=== PATIENT | male | born 1970 | race Caucasian/White ===

== ENCOUNTER 2016-08-04 09:47 | Emergency (ER) | payer OTHER ==
[~2016-08-04] VITALS: Ht 185.4 cm; Wt 87.2 kg
[~2016-08-04 09:47] MED LIST: [UNRECOGNIZED DRUG - OTHER]
[2016-08-04 09:51] VITALS: TEMP 37; Ht 185.4 cm; Wt 87.2 kg
[2016-08-04 10:01] VITALS: O2SAT 97
[2016-08-04] MEDS ORDERED: SODIUM CHLORIDE 0.9% 1000ML 1,000 ML IV STA (10:02)
[2016-08-04] MEDS ORDERED: ONDANSETRON INJ 2 MG/ML 2 ML VIAL IV STA (10:02)
[2016-08-04] MEDS ORDERED: ALUMINUM/MAGNESIUM SUSP 30 ML UDC PO STA (10:02)
--- NOTE | 2016-08-04 10:11 | EMERGENCY ROOM VISIT NOTE ---
History Report prepared by [place]: Pieter Alatorre Under the Supervision of: Meng BarrosO. First contact with patient: 09:53 Chief Complaint: CARDIAC ASSESSMENT Stated Complaint: CHEST DISCOMFORT History of Present Illness The patient is a 46 year old male who presents to the Emergency Room with complaints of intermittent right sided chest pain radiating to the middle of the chest starting last night. He denies any pain radiation to the back. He had just finished eating when he had the onset of his pain. He has worsening pain with movement and lying down flat. He denies any worsening pain with eating. He currently denies any pain. He had a vomiting episode last night. He denies shortness of breath, abdominal pain, lower extremity pain/swelling, or any other complaints. He has a history of perforated esophagus. He does not have any medical problems. He takes 81 mg Aspirin for a family history of heart disease. Source of History: patient Onset: last night Position: chest (right) Symptom Intensity: No pain currently Modifying Factors (Worsening): movement, other (lying down flat) Associated Symptoms: + vomiting, No SOB, No abdominal pain Review of Systems See HPI for pertinent positives & negatives. A total of 10 systems reviewed and were otherwise negative. Past Medical & Surgical Medical Problems: (1) Chest pain (2) Esophageal perforation (3) Hypoxia (4) Intellectual disability Family History Cancer Heart disease Hypertension Social History Smoking Status: Never Smoker Alcohol Use: none Drug Use: none Housing Status: lives with family Occupation Status: employed Current/Historical Medications Scheduled Aspirin (Aspirin Ec), 81 MG PO DAILY Levofloxacin (Levaquin), 750 MG PO DAILY Multivitamin (Multivitamin), 1 TAB PO DAILY Omeprazole (Prilosec), 20 MG PO DAILY Ranitidine Hcl (Zantac), 150 MG PO BID Allergies Coded Allergies: No Known Allergies (Unverified , 08/04/16) Physical Exam Vital Signs Date Time Temp Pulse Resp B/P Pulse Ox O2 Delivery O2 Flow Rate FiO2 08/04/16 14:19 69 19 105/68 96 Room Air 08/04/16 13:31 67 08/04/16 12:20 64 16 109/65 98 Room Air 08/04/16 10:55 71 18 121/65 97 Room Air 08/04/16 10:08 83 20 136/77 97 08/04/16 10:02 80 08/04/16 10:01 97 Room Air 08/04/16 10:01 97 Room Air 08/04/16 09:51 37.0 86 18 122/69 98 Room Air Physical Exam GENERAL: Patient is awake, alert, and in no acute distress. Patient is resting comfortably and showing no signs of anxiety EYES: The conjunctivae are clear. The pupils are round and reactive. EARS, NOSE, MOUTH AND THROAT: The nose is without any evidence of any deformity. Mucous membranes are moist tongue is midline NECK: The neck is nontender and supple. RESPIRATORY: Normal respiratory effort is noted there is no evidence of wheezing rhonchi or rales CARDIOVASCULAR: Regular rate and rhythm noted there no murmurs rubs or gallops normal S1 normal S2 GASTROINTESTINAL: The abdomen is soft. Bowel sounds are present in all quadrants. Abdomen is nontender MUSCULOSKELETAL/EXTREMITIES: There is no evidence of gross deformity full range of motion is noted in the hips and shoulders SKIN: There is no obvious evidence of any rash. There are no petechiae, pallor or cyanosis noted. NEUROLOGIC: Patient is awake alert and oriented x3 Medical Decision & Procedures ER Provider Diagnostic Interpretation: X-ray results as stated below per interpretation by me and the radiologist. ABDOMEN 2VIEW W/PA CHEST RTN CLINICAL HISTORY: ABDOMINAL PAIN/GI pain. Nausea. COMPARISON STUDY: 09/24/2014 FINDINGS: Persistent parenchymal infiltrative change medial left base is improved from the prior exam. Lungs otherwise appear clear. Diaphragms smooth. Bowel pattern is nonobstructive. There is a moderate amount of fecal load throughout the colon. There is no significant small bowel distention. IMPRESSION: Mild improvement of a left basilar parenchymal density. Nonobstructive bowel pattern. No acute process currently. Electronically signed by: Tanvir Sigala M.D. 08/04/2016 12:01 PM Dictated Date/Time: 08/04/2016 12:[address] results as stated below per my review and radiologist interpretation. Study: CT angiography of the chest HISTORY: Chest pain FINDINGS: Slight ectasia of the a sending thoracic aorta with maximum diameter of 3.3 cm. No evidence for aneurysm or dissection. Hiatal hernias present. There is mild distal esophageal wall thickening. Evaluation of lung parenchyma demonstrates bibasilar interstitial prominence. Mild left basal pleural thickening is present. A low-grade pneumonitis is not excluded. Limited evaluation the upper abdomen is unremarkable. IMPRESSION: 1. Negative study of the thoracic aorta. 2. Mild bibasilar interstitial prominence possibly on the basis of atelectatic change versus mild basilar pneumonitis. 3. Otherwise negative study Electronically signed by: Tanvir Sigala M.D. 08/04/2016 12:58 PM Dictated Date/Time: 08/04/2016 12:54 PM Laboratory Results 08/04/16 10:12 Red Blood Count 4.80, Mean Corpuscular Volume 87.7, Mean Corpuscular Hemoglobin 31.7, Mean Corpuscular Hemoglobin Concent 36.1, Mean Platelet Volume 9.2, Neutrophils (%) (Auto) 82.9, Lymphocytes (%) (Auto) 9.8, Monocytes (%) (Auto) 6.9, Eosinophils (%) (Auto) 0.1, Basophils (%) (Auto) 0.1, Neutrophils # (Auto) 14.00, Lymphocytes # (Auto) 1.65, Monocytes # (Auto) 1.16, Eosinophils # (Auto) 0.02, Basophils # (Auto) 0.01 08/04/16 10:12 Test 08/04/16 10:12 08/04/16 11:05 White Blood Count 16.88 K/uL (4.8-10.8) Red Blood Count 4.80 M/uL (4.7-6.1) Hemoglobin 15.2 g/dL (14.0-18.0) Hematocrit 42.1 % (42-52) Mean Corpuscular Volume 87.7 fL (80-100) Mean Corpuscular Hemoglobin 31.7 pg (25-34) Mean Corpuscular Hemoglobin Concent 36.1 g/dl (32-36) Platelet Count 204 K/uL (130-400) Mean Platelet Volume 9.2 fL (7.4-10.4) Neutrophils (%) (Auto) 82.9 % Lymphocytes (%) (Auto) 9.8 % Monocytes (%) (Auto) 6.9 % Eosinophils (%) (Auto) 0.1 % Basophils (%) (Auto) 0.1 % Neutrophils # (Auto) 14.00 K/uL (1.4-6.5) Lymphocytes # (Auto) 1.65 K/uL (1.2-3.4) Monocytes # (Auto) 1.16 K/uL (0.11-0.59) Eosinophils # (Auto) 0.02 K/uL (0-0.5) Basophils # (Auto) 0.01 K/uL (0-0.2) RDW Standard Deviation 38.5 fL (36.4-46.3) RDW Coefficient of Variation 12.1 % (11.5-14.5) Immature Granulocyte % (Auto) 0.2 % Immature Granulocyte # (Auto) 0.04 K/uL (0.00-0.02) Prothrombin Time 11.1 SECONDS (9.0-12.0) Prothromb Time International Ratio 1.0 (0.9-1.1) Activated Partial Thromboplast Time 28.9 SECONDS (21.0-31.0) Partial Thromboplastin Ratio 1.1 Anion Gap 10.0 mmol/L (3-11) Est Creatinine Clear Calc Drug Dose 105.4 ml/min Estimated GFR () 104.9 Estimated GFR (Non- 90.5 BUN/Creatinine Ratio 17.2 (10-20) Calcium Level 9.3 mg/dl (8.5-10.1) Total Bilirubin 1.8 mg/dl (0.2-1) Direct Bilirubin 0.3 mg/dl (0-0.2) Aspartate Amino Transf (AST/SGOT) 17 U/L (15-37) Alanine Aminotransferase (ALT/SGPT) 27 U/L (12-78) Alkaline Phosphatase 56 U/L (45-117) Total Creatine Kinase 73 U/L (39-308) Creatine Kinase MB 2.2 ng/ml (0.5-3.6) Creatine Kinase MB Ratio 3.0 (0-3.0) Troponin I < 0.015 ng/ml (0-0.045) Total Protein 6.9 gm/dl (6.4-8.2) Albumin 4.0 gm/dl (3.4-5.0) Lipase 120 U/L (73-393) Urine Color YELLOW Urine Appearance CLEAR (CLEAR) Urine pH 6.5 (4.5-7.5) Urine Specific [place] 1.010 (1.000-1.030) Urine Protein NEG (NEG) Urine Glucose (UA) NEG (NEG) Urine Ketones NEG (NEG) Urine Occult Blood NEG (NEG) Urine Nitrite NEG (NEG) Urine Bilirubin NEG (NEG) Urine Urobilinogen NEG (NEG) Urine Leukocyte Esterase NEG (NEG) Laboratory results per my review. Medications Administered Medications (Trade) Dose Ordered Sig/Marilia Route Start Time Stop Time Status Last Admin Dose Admin Al Hydroxide/Mg Hydroxide 30 ml 30 ml NOW STAT PO 08/04/16 10:02 08/04/16 10:03 DC 08/04/16 10:21 30 ML Sodium Chloride (Nss 1000ml) 1,000 ml @ 999 mls/hr Q1H1M STAT IV 08/04/16 10:02 08/04/16 11:02 DC 08/04/16 10:22 999 MLS/HR Ondansetron HCl 4 mg 4 mg NOW STAT IV 08/04/16 10:02 08/04/16 10:03 DC 08/04/16 10:21 4 MG Pantoprazole Sodium/Syringe (Protonix Inj/ Syringe) 10 ml @ 5 mls/min NOW ONCE IV 08/04/16 10:15 08/04/16 10:16 DC 08/04/16 10:22 5 MLS/MIN Levofloxacin (Levaquin Tab) 750 mg NOW STAT PO 08/04/16 13:51 08/04/16 13:52 DC 08/04/16 14:16 750 MG ECG Indication: chest pain Rate (beats per minute): 77 Rhythm: normal sinus Findings: Q waves (Inferior), other (No acute ST segment abnormalities) Comparison ECG Date: November 08, 2010 Change: no significant change ED Course 0953: The patient was evaluated in room C04. A complete history and physical examination were performed. 1002: Zofran Inj 4 mg IV, Sodium Chloride 1000 ml @ 999 mls/hr IV, Maalox Susp 30 ml PO 1015: Pantoprazole Sodium 40 mg/Syringe 10 ml @ 5 mls/min IV 1308: I discussed the patient's case with Dr. Patton, [facility]. 1340: Upon reevaluation, the patient is resting comfortably. I discussed the results and treatment plan with the patient and his family. They verbalized agreement of the treatment plan. The patient was discharged home. 1351: Levofloxacin 750 mg PO Medical Decision Prior records/ancillary studies reviewed. Triage Nursing notes reviewed. The patient's history was concerning for chest pain. Differential diagnosis: Etiologies such as cardiac ischemia, aortic dissection, pulmonary embolism, pneumonia, pneumothorax, musculoskeletal, infections, pericarditis, myocarditis , esophageal rupture, gastrointestinal, as well as others were entertained. The patient is a 46-year-old male who presented to the emergency department for an evaluation of right-sided chest pain. The patient's EKG did not appear to show any changes from his previous EKG. The patient has had ongoing pain in his cardiac biomarkers are negative. The patient doesn't a history of esophageal rupture in the past. He had surgery on this area. I was concerned that his presentation could be consistent with more of a GI type of pain. For this reason radiographic studies were obtained to ensure that he did not have another perforation. He was shown to have some signs of pneumonia on chest CT. He had no free air or other signs of perforation. He did have an elevated white blood cell count but he did not cough or fever. I discussed his case with his primary delivery representative. At this time I recommended that he follow-up with his delivery representative as soon as possible for further evaluation. He was started on antibiotic. He was encouraged also continue taking proton pump inhibitor that was prescribed. I also recommended that he rest and avoid any strenuous activity and return to the emergency department immediately if symptoms change worsen or the need arises. Consults Time Called: 1305 Consulting Physician: Dr. Patton, delivery representative with [facility] Returned Call: 1302 I discussed the patient's case with Dr. Patton, delivery representative with [facility]. Impression Primary Impression: Right-sided chest pain Additional Impression: Pneumonia Scribe Attestation The scribe's documentation has been prepared under my direction and personally reviewed by me in its entirety. I confirm that the note above accurately reflects all work, treatment, procedures, and medical decision making performed by me. Departure Information Dispostion Home / Self-Care Prescriptions Levofloxacin (Levaquin) 750 Mg Tab 750 MG PO DAILY, #7 TAB Prov: Tito Nagel, DO 08/04/16 Ranitidine Hcl (ZANTAC) 150 Mg Tab 150 MG PO BID, #60 TAB Prov: Tito Nagel, DO 08/04/16 Omeprazole (Prilosec) 20 Mg Capcr 20 MG PO DAILY, #30 CAP Prov: Tito Nagel, DO 08/04/16 Referrals Ahmet Zuniga M.D. (PCP) Tan Patton D.O. Forms IMPORTANT VISIT INFORMATION Patient Instructions ED Chest Pain Atypical Unkn Cause, My [facility], Pneumonia Additional Instructions Continue using Tylenol as directed for pain. Drink plenty clear liquids. Follow- up with your family doctor for further evaluation. Call your primary delivery representative to schedule a follow-up appointment as soon as possible. Return to the emergency department immediately if symptoms change worsen or the need arises. Avoid any strenuous activity. Problem Qualifiers Additional Impression: Pneumonia Pneumonia type: due to unspecified organism Laterality: unspecified laterality Lung location: lower lobe of lung Qualified Codes: J18.1 - Lobar pneumonia, unspecified organism
[2016-08-04] MEDS ORDERED: PANTOprazole INJ 40 MG in SYRINGE 0 ML IV ONE (10:15)
[2016-08-04 10:31] LABS: BASO % 0.1 %; BASO ABS # 0.01 K/uL (0-0.2); COMPLETE YES; EOS % 0.1 %; HEMATOCRIT 42.1 % (42-52); IG% 0.2 %; LYMPH % 9.8 %; LYMPH ABS # 1.65 K/uL (1.2-3.4); MEAN CELL VOLUME 87.7 fL (80-100); MEAN CORPUSCULAR HEMOGLOBIN 31.7 pg (25-34); MEAN CORPUSCULAR HGB CONC 36.1 g/dl (32-36); MEAN PLATELET VOLUME 9.2 fL (7.4-10.4); MONO % 6.9 %; NEUT % 82.9 %; PLATELET COUNT 204 K/uL (130-400); WHITE BLOOD COUNT 16.88 K/uL (4.8-10.8)
[2016-08-04 10:39] LABS: PARTIAL THROMBOPLASTIN RATIO 1.1; PROTHROMBIN TIME (PATIENT) 11.1 SECONDS (9.0-12.0)
[2016-08-04 10:47] LABS: ALT/SGPT 27 U/L (12-78); BLOOD UREA NITROGEN 17 mg/dl (7-18); BUN/CREATININE RATIO 17.2 (10-20); CALCIUM 9.3 mg/dl (8.5-10.1); CARBON DIOXIDE 27 mmol/L (21-32); CHLORIDE 100 mmol/L (98-107); GLUCOSE 107 mg/dl (70-99); POTASSIUM 4.1 mmol/L (3.5-5.1); SODIUM 137 mmol/L (136-145)
[2016-08-04 10:52] LABS: ALKALINE PHOSPHATASE 56 U/L (45-117); AST/SGOT 17 U/L (15-37)
[2016-08-04] MEDS ORDERED: ASPI81TA28 PO (11:13)
[2016-08-04] MEDS ORDERED: MULT-506 PO (11:13)
[2016-08-04 11:20] LABS: URINE APPEARANCE CLEAR (CLEAR); URINE BILIRUBIN NEG (NEG); URINE COLOR YELLOW; URINE NITRITE NEG (NEG); URINE PH 6.5 (4.5-7.5); UROBILINOGEN NEG (NEG)
[2016-08-04 11:29] LABS: MANUAL MICROSCOPIC REQUIRED? NO; REVIEW REQ? NO
--- NOTE | 2016-08-04 12:02 | DIAGNOSTIC IMAGING REPORT ---
ABDOMEN 2VIEW W/PA CHEST RTN CLINICAL HISTORY: ABDOMINAL PAIN/GI pain. Nausea. COMPARISON STUDY: 09/24/2014 FINDINGS: Persistent parenchymal infiltrative change medial left base is improved from the prior exam. Lungs otherwise appear clear. Diaphragms smooth. Bowel pattern is nonobstructive. There is a moderate amount of fecal load throughout the colon. There is no significant small bowel distention. IMPRESSION: Mild improvement of a left basilar parenchymal density. Nonobstructive bowel pattern. No acute process currently. Electronically signed by: Tanvir Sigala M.D. 08/04/2016 12:01 PM Dictated Date/Time: 08/04/2016 12:00 PM
[2016-08-04] MEDS ORDERED: OPTIRAY 320 IV PRN (12:30)
--- NOTE | 2016-08-04 12:59 | DIAGNOSTIC IMAGING REPORT ---
Study: CT angiography of the chest HISTORY: Chest pain FINDINGS: Slight ectasia of the a sending thoracic aorta with maximum diameter of 3.3 cm. No evidence for aneurysm or dissection. Hiatal hernias present. There is mild distal esophageal wall thickening. Evaluation of lung parenchyma demonstrates bibasilar interstitial prominence. Mild left basal pleural thickening is present. A low-grade pneumonitis is not excluded. Limited evaluation the upper abdomen is unremarkable. IMPRESSION: 1. Negative study of the thoracic aorta. 2. Mild bibasilar interstitial prominence possibly on the basis of atelectatic change versus mild basilar pneumonitis. 3. Otherwise negative study Electronically signed by: Tanvir Sigala M.D. 08/04/2016 12:58 PM Dictated Date/Time: 08/04/2016 12:54 PM
[2016-08-04] MEDS ORDERED: LEVOFLOXACIN 250 MG TAB PO STA (13:51)
[2016-08-04] MEDS ORDERED: LEVO1TAB35 PO (13:53)
[2016-08-04] MEDS ORDERED: OMEP20CA59 PO (13:53)
[2016-08-04] MEDS ORDERED: RANI150T3 PO (13:53)
[2016-08-04 14:19] VITALS: BP 105/68; PULSE 69; O2SAT 96
== END 2016-08-04 14:24 | disposition home or self-care (01) ==
LOC: C.EDB 09:48 → C.EDC 14:24
DX: J18.1 Lobar pneumonia, unspecified organism (principal); Z79.82 Long term (current) use of aspirin; F79 Unspecified intellectual disabilities; Z79.899 Other long term (current) drug therapy

== ENCOUNTER 2020-07-18 21:00 | Inpatient (IN) ==
[2020-07-18] MEDS ORDERED: SODIUM CHLORIDE 0.9% 1000ML 2,000 ML IV ONE (21:09)
[2020-07-18] MEDS ORDERED: diphenhydrAMINE 50 MG/ML VIAL IV STA (21:09)
[2020-07-18] MEDS ORDERED: FAMOTIDINE 20MG IV PUSH 20 MG/5 ML SYR IV STA (21:09)
[2020-07-18] MEDS ORDERED: ONDANSETRON INJ 2 MG/ML 2 ML VIAL IV STA (21:10)
[2020-07-18 21:21] LABS: Basophils # (auto) 0.03 K/uL (0-0.2); Basophils % (auto) 0.2 %; Eosinophils # (auto) 0.26 K/uL (0-0.5); Eosinophils % (auto) 1.5 %; Immature Granulocytes # (auto) 0.05 K/uL (0.00-0.02); Immature Granulocytes % (auto) 0.3 %; Lymphocytes # (auto) 2.43 K/uL (1.2-3.4); Lymphocytes % (auto) 14.2 %; Mean Corpuscular Hemoglobin 32.5 pg (25-34); Mean Corpuscular Hgb Conc 36.4 g/dL (32-36); Mean Corpuscular Volume 89.2 fL (80-100); Mean Platelet Volume 9.3 fL (7.4-10.4); Monocytes # (auto) 0.57 K/uL (0.11-0.59); Monocytes % (auto) 3.3 %; Neutrophils # (auto) 13.81 K/uL (1.4-6.5); Neutrophils % (auto) 80.5 %; Platelet Count 273 K/uL (130-400); RDW Coefficient of Variation 12.3 % (11.5-14.5); RDW Standard Deviation 39.6 fL (36.4-46.3); Red Blood Count 4.93 M/uL (4.7-6.1); White Blood Count 17.15 K/uL (4.8-10.8)
[2020-07-18] MEDS ORDERED: OPTIRAY 320 125ml IV ONE (21:30)
[2020-07-18 21:31] LABS: iSTAT Creatinine 1.4 mg/dl (0.6-1.3); iSTAT Hemoglobin 15.3 g/dl (14.0-18.0); iSTAT Ionized Calcium 1.15 mmol/l (1.12-1.32)
[2020-07-18 21:31] LABS: Prothrombin Time 10.3 Seconds (9.0-12.0)
--- NOTE | 2020-07-18 21:31 | Emergency Department Note ---
Impression & Plan Hematemesis of unknown etiology, Esophagitis, Acute hypotension, Acute renal insufficiency ED Provider Note NAME: JANE BABIN AGE: 49 SEX: M ARRIVES VIA: Walk-In INFORMANT: Patient, parents ED PROVIDER(S): Giovani Booker MD CHIEF COMPLAINT: Vomiting blood. PLAN: Disposition: Admit MEDICAL DECISION MAKING: The patient is a pleasant 49-year-old gentleman with a past medical history of intellectual disability, history of esophageal perforation in 2015 repaired at [facility] who presents to the emergency department accompanied by his parents after they were eating dinner and he began to feel nauseated and vomited numerous times eventually having blood in his vomit as well with increasing abdominal pain where he was feeling lightheaded and so presented to the emergency department. In triage the patient became pale, diaphoretic and syncopized with blood pressure in the 60s/40s. Upon arrival to the resuscitation bay and ini tiating IV fluids he was improving in his mentation and blood pressure. He denies any recent illness including denies recent fevers, chills, cough congestion, nausea vomiting, diarrhea, bloody/black stool. He does report that his nausea began first in his chest and abdominal pain only occurred after vomiting. On arrival the patient is ill and pale appearing, hypotensive 60s/40s which was fluid responsive and became normotensive and otherwise vital signs were stable and patient is afebrile. The patient appears clinically dry. He has mild upper abdominal tenderness without guarding or rebound. Given the patient's history of perforation an i-STAT was performed and patient was emergently sent for CTA of his chest and abdomen. These were unremarkable for acute process and otherwise demonstrates evidence of esophagitis which has previously been diagnosed. EKG without overt acute ischemia. Chest x-ray negative for acute cardiopulmonary process per my preliminary review. WBC 17K likely related to the patient's forceful vomiting. H/H and platelets within normal limits. Chemistry without metabolic acidosis. Creatinine 1.42, slightly increased from several days ago and consistent with patient's clinically dry appearance. Phosphorus 2.1 and electrolytes otherwise unremarkable. Troponin was negative/undetectable. LFTs unremarkable. CPK within normal limits. Upon reevaluation patient was feeling improved after IV fluid hydration, Pepcid, Zofran. He subsequently did have a transient episode of dry heaving that resolved with Compazine. He was then given additional GI cocktail with additional improvement. I did speak at length with the patient and his parents at the bedside. They do feel that there was "a lot of blood" with his vomit. Given his history they're worried if they are to take him home and this were to recur. Thus, reasonable to admit the patient for further management/observation and possible GI consultation and endoscopy if indicated. At this time the patient denies any pain or nausea. Dr. Guzmán, [facility] hospitalist, to will evaluate the patient for admission. Triage Nursing notes reviewed and agree them. Prior medical records reviewed Vital Signs: reviewed and remarkable for hypotension. Differential diagnosis: Vasovagal event, dehydration, infection, hypoglycemia, electrolyte abnormalities, cardiac sources, intracerebral event, pulmonary embolism, seizur e, toxicologic, neurologic, as well as other pathologies. ER treatment provided: See below. Diagnostics interpreted by me: ECG: Normal sinus rhythm, 69 bpm, no ectopy, nonspecific T wave abnormality, no overt ST ovation or depression, QTC 422, QRS 96. Cardiac Monitoring: An order for continuous cardiac monitoring was placed and demonstrated normal sinus rhythm, 69 bpm, no ectopy. Laboratory studies: See below Imaging studies: CXR: No acute cardiopulmonary process per my preliminary review. Preliminary Findings Only See Final Report For Complete Findings CTA CHEST: No thoracic aortic aneurysm or dissection. Mild atelectasis of the lung bases. Calcified granuloma left upper lobe. Partially calcified subcarinal and bilateral hilar lymph nodes may represent sequela of prior granulomatous disease. Small hiatal hernia with suggestion of circumferential wall thickening of the mid to distal esophagus which could be attributed to esophagitis, with an underlying lesion not excluded. No pleural effusion or pneumothorax. Radiologist: Jessenia Cotto M.D. Study ready at 21:44 and initial results transmitted at 21:58 Preliminary Findings Only See Final Report For Complete Findings CTA ABDOMEN & PELVIS With Contrast: No abdominal aortic aneurysm or dissection. No acute findings within the abdomen or pelvis. Hepatic steatosis. Minimal hyperdensity within the neck of the gallbladder could represent tiny stones or sludge. No hydronephrosis or nephrolithiasis. Pancreas, adrenal glands, spleen and appendix are unremarkable Radiologist: Jessenia Cotto M.D. Study ready at 21:47 and initial results transmitted at 22:03 Consultation(s): Dr. Guzmán, [facility] hospitalist. HPI: The patient is a pleasant 49-year-old gentleman with a past medical history of intellectual disability, history of esophageal perforation in 2015 repaired at [facility] who presents to the emergency department accompanied by his parents after they were eating dinner and he began to feel nauseated and vomited numerous times eventually having blood in his vomit as well with increasing abdominal pain where he was feeling lightheaded and so presented to the emergency department. In triage the patient became pale, diaphoretic and syncopized with blood pressure in the 60s/40s. Upon arrival to the resuscitation bay and initiating IV fluids he was improving in his mentation and blood pressure. He denies any recent illness including denies recent fevers, chills, cough congestion, nausea vomiting, diarrhea, bloody/black stool. He does report that his nausea began first in his chest and abdominal pain only occurred after vomiting. ROS: See above HPI for pertinent positives & negatives. A total of 10 systems reviewed and were otherwise negative. PAST MEDICAL HISTORY:See Below PAST SURGICAL HISTORY:See Below FAMILY HISTORY:See Below SOCIAL HISTORY:See Below HOME MEDICATIONS:See Below ALLERGIES:See Below VITALS:See Below PHYSICAL EXAMINATION: GENERAL: Awake, alert, uncomfortable-appearing, in no distress HENT: Normocephalic, atraumatic. Oropharynx with dry mucous membranes and otherwise unremarkable. EYES: Normal conjunctiva. Sclera non-icteric. EOMI. No nystamgus. PEARRL. NECK: Supple. No nuchal rigidity. FROM. No JVD. RESPIRATORY: Clear to auscultation. CARDIAC: Regular rate, normal rhythm. Extremities warm and well perfused. Pulses equal. ABDOMEN: Soft, non-distended. Mild upper abdominal tenderness to palpation. No rebound or guarding. No masses. RECTAL: Deferred. MUSCULOSKELETAL: Chest examination reveals no tenderness. The back is symmetrical on inspection without obvious abnormality. There is no CVA tenderness to palpation. No joint edema. LOWER EXTREMITIES: Calves are equal size bilaterally and non-tender. No edema. No discoloration. NEURO: Normal sensorium. No sensory or motor deficits noted. SKIN: Mild pallor. No rash or jaundice noted. ED COURSE: Critical Care: I have personally spent greater than 35 minutes of critical care time in the direct management of this patient. This includes bedside care, interpretation of diagnostic studies, and testing, discussion with consultants, patient, and family members, and other required patient management activities. This 35 minutes is in excess of all separately billable procedures. Gioavni Booker MD Past Med/Surg History Medical History (Updated 07/19/20 @ 04:38 by Giovani Booker MD) Esophageal perforation Esophagitis Intellectual disability Surgical History (Updated 07/14/19 @ 16:41 by Zana Zuniga MD) History of hernia repair Umbilical hernia repair June 2005 Right inguinal hernia repair March 2014-Dr. Rodriguez History of thoracotomy Status post left thoracotomy for repair of esophageal perforation 09/03/2014 Family History (Updated 07/14/19 @ 16:01 by Brett Brooks) Brother Diabetes Heart disease Hypertension Father Heart disease Hypertension Mother Brain tumor Denies family history of Ovarian cancer Prostate cancer Clotting disorder Breast cancer Social History (Updated 07/14/19 @ 16:43 by Zana Zuniga MD) Smoking Status: Never smoker Second Hand Exposure: No; Do You Dip or Chew Tobacco: No; Hx Alcohol Use: Yes Alcohol type: beer Hx Substance Use: No Preferred Language: Persian Communication Ability: Effective Geothermal Technician Required: No Beliefs That Will Affect Care: None marital status: Single Current Living Situation: Parent and Family Current Living Situation Comment: Lives with parents current occupational status: employed current occupation: [employer] Other Information That Helps Us Care for You: No Feels Safe at Home: Yes Safety Concerns: Feels Safe At This Time Dental Care, Regularly: Yes Physical Activity Frequency: Daily Physical Activity Frequency Comment: Walks approximately 2 miles per day. Seatbelt Use: always Assistive Devices: None Allergies Allergies Allergy/AdvReac Type Severity Reaction Status Date / Time No Known Allergies Allergy Unverified 07/18/20 21:39 Home Meds Home Medications Medication Instructions Recorded Confirmed ascorbate calcium (vitamin C) 500 500 mg PO DAILY 07/14/19 07/18/20 mg tablet aspirin 81 mg tablet,delayed 81 mg PO DAILY 07/14/19 07/18/20 release multivitamin 1 cap PO DAILY 07/14/19 07/18/20 Results & Data (ED) Vital Signs Vital Signs - 24 hr 07/18/20 21:02 07/18/20 21:06 07/18/20 21:14 Temperature Temperature Source Pulse Rate 72 63 66 Respiratory Rate 18 21 20 Respiratory Effort / Characteristics Non-Labored Spontaneous Respiratory Depth Normal Blood Pressure 68/40 L 102/53 L 99/56 L Blood Pressure Mean 49 69 70 Pulse Oximetry 96 97 98 Oxygen Delivery Method Room Air Sepsis Recent Fever Within 48 Hours No Sepsis New/Unexplained Change in Mental Status No Sepsis Action Taken by Nursing No Action Required 07/18/20 21:15 07/18/20 21:20 07/18/20 21:43 Temperature 37.3 C Temperature Source Oral Pulse Rate 65 67 90 Respiratory Rate 20 18 24 Respiratory Effort / Characteristics Respiratory Depth Blood Pressure 101/58 L 105/56 L 128/64 Blood Pressure Mean 72 72 85 Pulse Oximetry 97 98 99 Oxygen Delivery Method Sepsis Recent Fever Within 48 Hours Sepsis New/Unexplained Change in Mental Status Sepsis Action Taken by Nursing 07/18/20 21:45 07/18/20 21:46 07/18/20 21:51 Temperature Temperature Source Pulse Rate 86 82 Respiratory Rate 24 20 Respiratory Effort / Characteristics Respiratory Depth Blood Pressure 123/64 107/72 Blood Pressure Mean 83 83 Pulse Oximetry 100 99 99 Oxygen Delivery Method Room Air Room Air Room Air Sepsis Recent Fever Within 48 Hours Sepsis New/Unexplained Change in Mental Status Sepsis Action Taken by Nursing 07/18/20 22:00 07/18/20 22:15 07/18/20 22:20 Temperature 37.1 C Temperature Source Oral Pulse Rate 80 75 Respiratory Rate 19 19 Respiratory Effort / Characteristics Respiratory Depth Blood Pressure 117/50 L 108/62 Blood Pressure Mean 72 77 Pulse Oximetry 99 98 Oxygen Delivery Method Room Air Room Air Sepsis Recent Fever Within 48 Hours Sepsis New/Unexplained Change in Mental Status Sepsis Action Taken by Nursing 07/18/20 22:33 Temperature Temperature Source Pulse Rate 77 Respiratory Rate 20 Respiratory Effort / Characteristics Respiratory Depth Blood Pressure 116/60 Blood Pressure Mean 78 Pulse Oximetry 98 Oxygen Delivery Method Sepsis Recent Fever Within 48 Hours Sepsis New/Unexplained Change in Mental Status Sepsis Action Taken by Nursing Laboratory Data Result diagrams: 07/18/20 21:13 07/18/20 21:13 Lab Results 07/18/20 07/18/20 07/18/20 Range/Units 21:13 21:13 21:13 WBC 17.15 H (4.8-10.8) K/uL RBC 4.93 (4.7-6.1) M/uL Hgb 16.0 (14.0-18.0) g/dL POC Hgb (14.0-18.0) g/dl Hct 44.0 (42-52) % POC Hct (42-52) % MCV 89.2 (80-100) fL MCH 32.5 (25-34) pg MCHC 36.4 H (32-36) g/dL RDW Std Deviation 39.6 (36.4-46.3) fL RDW Coeff of Agnes 12.3 (11.5-14.5) % Plt Count 273 (130-400) K/uL MPV 9.3 (7.4-10.4) fL Immature Gran % (Auto) 0.3 % Neut % (Auto) 80.5 % Lymph % (Auto) 14.2 % Dixon % (Auto) 3.3 % Eos % (Auto) 1.5 % Baso % (Auto) 0.2 % Neut # (Auto) 13.81 H (1.4-6.5) K/uL Lymph # (Auto) 2.43 (1.2-3.4) K/uL Dixon # (Auto) 0.57 (0.11-0.59) K/uL Eos # (Auto) 0.26 (0-0.5) K/uL Baso # (Auto) 0.03 (0-0.2) K/uL Immature Gran # (Auto) 0.05 H (0.00-0.02) K/uL PT 10.3 (9.0-12.0) Seconds INR 1.0 (0.9-1.1) POC Sodium (135-144) mmol/L Sodium (136-145) mmol/L POC Potassium (3.3-5.0) mmol/L Potassium (3.5-5.1) mmol/L POC Chloride (101-112) mmol/L Chloride (98-107) mmol/L Carbon Dioxide (21-32) mmol/L POC Total CO2 (24-31) mmol/L Anion Gap (3-11) POC Anion Gap (16-25) mmol/L POC BUN (7-18) mg/dl BUN (7-18) mg/dl Creatinine (0.6-1.4) mg/dl POC Creatinine (0.6-1.3) mg/dl Est Cr Clr Drug Dosing ml/min Est GFR ( Amer) Est GFR (Non-Af Amer) BUN/Creatinine Ratio (10-20) Glucose (70-99) mg/dl POC Glucose (other) (70-99) mg/dl Calcium (8.5-10.1) mg/dl POC Ioniz Calcium Ahsa (1.12-1.32) mmol/l Phosphorus (2.5-4.9) mg/dl Magnesium (1.8-2.4) mg/dl Total Bilirubin (0.2-1) mg/dl Direct Bilirubin (0-0.2) mg/dl AST (15-37) U/L ALT (12-78) U/L Alkaline Phosphatase (45-117) U/L Total Creatine Kinase (39-308) U/L Troponin I (0-0.045) ng/ml Total Protein (6.4-8.2) gm/dl Albumin (3.4-5.0) gm/dl Globulin (2.5-4.0) gm/dl Albumin/Globulin Ratio (0.9-2) Lipase (73-393) U/L Blood Type O Positive Antibody Screen NEGATIVE 07/18/20 07/18/20 Range/Units 21:13 21:17 WBC (4.8-10.8) K/uL RBC (4.7-6.1) M/uL Hgb (14.0-18.0) g/dL POC Hgb 15.3 (14.0-18.0) g/dl Hct (42-52) % POC Hct 45 (42-52) % MCV (80-100) fL MCH (25-34) pg MCHC (32-36) g/dL RDW Std Deviation (36.4-46.3) fL RDW Coeff of Agnes (11.5-14.5) % Plt Count (130-400) K/uL MPV (7.4-10.4) fL Immature Gran % (Auto) % Neut % (Auto) % Lymph % (Auto) % Dixon % (Auto) % Eos % (Auto) % Baso % (Auto) % Neut # (Auto) (1.4-6.5) K/uL Lymph # (Auto) (1.2-3.4) K/uL Dixon # (Auto) (0.11-0.59) K/uL Eos # (Auto) (0-0.5) K/uL Baso # (Auto) (0-0.2) K/uL Immature Gran # (Auto) (0.00-0.02) K/uL PT (9.0-12.0) Seconds INR (0.9-1.1) POC Sodium 139 (135-144) mmol/L Sodium 139 (136-145) mmol/L POC Potassium 4.0 (3.3-5.0) mmol/L Potassium 3.9 (3.5-5.1) mmol/L POC Chloride 99 L (101-112) mmol/L Chloride 104 (98-107) mmol/L Carbon Dioxide 28 (21-32) mmol/L POC Total CO2 28 (24-31) mmol/L Anion Gap 7.0 (3-11) POC Anion Gap 17.0 (16-25) mmol/L POC BUN 18 (7-18) mg/dl BUN 17 (7-18) mg/dl Creatinine 1.42 H (0.6-1.4) mg/dl POC Creatinine 1.4 H (0.6-1.3) mg/dl Est Cr Clr Drug Dosing 84.0 ml/min Est GFR ( Amer) 67.2 Est GFR (Non-Af Amer) 58.0 BUN/Creatinine Ratio 12.3 (10-20) Glucose 153 H (70-99) mg/dl POC Glucose (other) 156 H (70-99) mg/dl Calcium 8.7 (8.5-10.1) mg/dl POC Ioniz Calcium Asha 1.15 (1.12-1.32) mmol/l Phosphorus 2.1 L (2.5-4.9) mg/dl Magnesium 1.9 (1.8-2.4) mg/dl Total Bilirubin 0.4 (0.2-1) mg/dl Direct Bilirubin < 0.1 (0-0.2) mg/dl AST 19 (15-37) U/L ALT 38 (12-78) U/L Alkaline Phosphatase 57 (45-117) U/L Total Creatine Kinase 88 (39-308) U/L Troponin I < 0.015 (0-0.045) ng/ml Total Protein 6.8 (6.4-8.2) gm/dl Albumin 3.7 (3.4-5.0) gm/dl Globulin 3.1 (2.5-4.0) gm/dl Albumin/Globulin Ratio 1.2 (0.9-2) Lipase 185 (73-393) U/L Blood Type Antibody Screen Administered Medications Sodium Chloride (Nss 1000ml) 1,000 mls @ 125 mls/hr IV .Q8H LEYLA Stop: 08/18/20 02:59 Last Admin: 07/19/20 03:38 Dose: 125 mls/hr Documented by: [id number] Discontinued Medications Al Hydrox/Mg Hydrox/Simethicone (Gi Cocktail Ed Use) 1 dose PO ONE ONE Stop: 07/18/20 23:32 Last Admin: 07/18/20 23:45 Dose: 1 dose Documented by: [id number] Diphenhydramine HCl (Diphenhydramine 50 Mg/Ml Vial) 25 mg IV NOW STA Stop: 07/18/20 21:10 Last Admin: 07/18/20 21:17 Dose: 25 mg Documented by: [id number] Sodium Chloride (Nss 1000ml) 2,000 mls @ 999 mls/hr IV .Q2H1M ONE Stop: 07/18/20 23:09 Last Infusion: 07/18/20 23:55 Dose: 0 mls/hr Documented by: [id number] Admin: 07/18/20 21:16 Dose: 999 mls/hr Documented by: [id number] Famotidine (Pepcid 20mg Iv Push) 20 mg in 5 mls @ 2.5 mls/min IV NOW STA Stop: 07/18/20 21:10 Last Admin: 07/18/20 21:17 Dose: 2.5 mls/min Documented by: [id number] Prochlorperazine (Compazine) 2 mls @ 1 mls/min IV ONE ONE Stop: 07/18/20 23:03 Last Admin: 07/18/20 23:07 Dose: 1 mls/min Documented by: [id number] Ioversol (Optiray 320 125ml) 120 ml IV ONCE ONE Stop: 07/18/20 21:31 Last Admin: 07/18/20 21:30 Dose: 120 ml Documented by: [id number] Ondansetron HCl (Ondansetron Inj 2 Mg/Ml 2 Ml Vial) 4 mg IV NOW STA Stop: 07/18/20 21:11 Last Admin: 07/18/20 21:17 Dose: 4 mg Documented by: [id number] Discharge Plan Visit Data Chief Complaint: Syncope (Near Syncope) Stated Complaint: HEMATEMESIS, SYNCOPE ED Provider: Giovani Booker Discharge Problem: Hematemesis of unknown etiology, Esophagitis, Acute hypotension, Acute renal insufficiency Patient Disposition: Admitted As Inpatient Discharge Instructions Interventions: ED Discharge Assessment Last Done: 07/19/20 01:25
[2020-07-18 21:38] LABS: Alanine Aminotransferase 38 U/L (12-78); Albumin Level 3.7 gm/dl (3.4-5.0); Aspartate Aminotransferase 19 U/L (15-37); BUN Creatinine Ratio 12.3 (10-20); Bilirubin Direct < 0.1 mg/dl (0-0.2); Blood Urea Nitrogen 17 mg/dl (7-18); Calcium 8.7 mg/dl (8.5-10.1); Carbon Dioxide 28 mmol/L (21-32); Chloride 104 mmol/L (98-107); Est GFR (African American) 67.2; Glucose 153 mg/dl (70-99); Lipase 185 U/L (73-393); Magnesium 1.9 mg/dl (1.8-2.4); Potassium 3.9 mmol/L (3.5-5.1); Sodium 139 mmol/L (136-145)
[2020-07-18 21:41] LABS: Albumin Globulin Ratio 1.2 (0.9-2); Alkaline Phosphatase 57 U/L (45-117); Bilirubin,Total 0.4 mg/dl (0.2-1); Creatine Kinase 88 U/L (39-308); Globulin 3.1 gm/dl (2.5-4.0); Phosphorus 2.1 mg/dl (2.5-4.9); Total Protein 6.8 gm/dl (6.4-8.2); Troponin I < 0.015 ng/ml (0-0.045)
[2020-07-18] MEDS ORDERED: PROCHLORPERAZINE 2 ML IV ONE (23:02)
[2020-07-18] MEDS ORDERED: GI COCKTAIL ED USE PO ONE (23:31)
--- NOTE | 2020-07-19 00:45 | History & Physical Report ---
Date of Service July 19, 2020 Assessment & Plan (1) Hematemesis of unknown etiology: Tanvir Velázquez is a 49y/o M with PMH significant for intellectual disability, and esophageal perforation repaired at [facility] in 2014; who presented to the ER for concerns of nausea, and vomiting of blood after eating dinner earlier this evening. Hematemesis: -Uncertain etiology of hematemesis; high concern for esophagitis/gastritis given patient chronically taking aspirin 81 mg, and history of esophageal perforation (2014) -Imaging according to stat rad radiology read: -CTA abdomen pelvis demonstrating no abdominal aortic aneurysm or dissection, no acute findings within the abdomen pelvis, minimal hyperdensity within the neck of the gallbladder. No hydronephrosis or nephrolithiasis. -CTA chest demonstrating small hiatal hernia with circumferential wall thickening of the mid/distal esophagus. No thoracic aortic aneurysm or dissection noted, mild atelectasis of the lung bases, no pleural effusion or pneumothorax. -GI consulted: For evaluation of potential need for EGD/further testing of sour ce of hematemesis -Start Protonix twice daily, Zofran as needed -Maintain n.p.o. at this time Acute kidney injury: -Creatinine on admission 1.42 -Elevated from previous lab work on 07/15 -Potential contributions from volume depletion secondary to hematemesis/vomiting from earlier this evening -Continue to monitor Diet: NPO CODE STATUS: Full code DVT PPx: Deferred in the setting of bleeding concern, encourage ambulation (2) Acute kidney injury: History of Present Illness Chief Complaint: hematemesis Primary Care Provider: Ahmet Zuniga MD Tanvir Velázquez is a 49y/o M with PMH significant for intellectual disability, and esophageal perforation repaired at [facility] in 2014; who presented to the ER for concerns of nausea, and vomiting of blood after eating dinner earlier this evening. Patient was eating dinner with his parents when he began to feel nauseated and then vomited several times before starting to vomit a small amount of blood before it became more bloody. Following this he felt lightheaded for a short period of time, and his parents brought him to the ER for evaluation given his history of previous esophageal perforation requiring repair. At this time patient continues to feel slight abdominal tenderness, however feels overall improved. Does feel more fatigued/tired than he was previously. Discussions had with both parents and patient given intellectual disability. Patient states that he has been feeling well over the last week, without any concerns for abdominal pain, nausea, vomiting, changes to bowel movements, bright red blood per rectum, melena. Was eating a [employer] dinner when the nausea suddenly came on, otherwise did not have any abdominal discomfort. Allergies Allergy/AdvReac Type Severity Reaction Status Date / Time No Known Allergies Allergy Unverified 07/18/20 21:39 Home Medications Medication Instructions Recorded Confirmed Type ondansetron HCl [Zofran] 4 mg PO Q6H PRN #30 tab 07/22/20 07/23/20 Rx pantoprazole [Protonix] 40 mg PO BID 30 Days #60 tab 07/22/20 07/23/20 Rx amoxicillin 875 mg-potassium 1 tab PO BID 07/23/20 07/23/20 History clavulanate 125 mg tablet Past Med/Surg History Medical History (Updated 07/23/20 @ 00:06 by Tatiana Stanley) Acute hypotension Acute renal insufficiency Esophageal perforation Esophagitis Hematemesis of unknown etiology Intellectual disability Surgical History (Updated 07/14/19 @ 16:41 by Zana Zuniga MD) History of hernia repair Umbilical hernia repair June 2005 Right inguinal hernia repair March 2014-Dr. Rodriguez History of thoracotomy Status post left thoracotomy for repair of esophageal perforation 09/03/2014 Family History (Updated 07/14/19 @ 16:01 by Brett Brooks) Brother Diabetes Heart disease Hypertension Father Heart disease Hypertension Mother Brain tumor Denies family history of Ovarian cancer Prostate cancer Clotting disorder Breast cancer Social History (Updated 07/14/19 @ 16:43 by Zana Zuniga MD) Smoking Status: Never smoker Second Hand Exposure: No; Hx Alcohol Use: Yes Alcohol type: beer Hx Substance Use: No Preferred Language: Romanian Communication Ability: Effective Triple Valve Tester Required: No Beliefs That Will Affect Care: None marital status: Single Current Living Situation: Parent and Family Current Living Situation Comment: Lives with parents current occupational status: employed current occupation: [employer] Feels Safe at Home: Yes Dental Care, Regularly: Yes Physical Activity Frequency: Daily Physical Activity Frequency Comment: Walks approximately 2 miles per day. Seatbelt Use: always Assistive Devices: Glasses Review of Systems Review of Systems: All systems reviewed & are unremarkable except as noted in HPI & below Physical Exam Constitutional: WD/WN, vitals as above Eyes: PERRL, conjunctivae normal, anicteric sclerae Respiratory: normal respiratory effort, lungs clear to auscultation Cardiovascular: Rate/Rhythm: regular rate and regular rhythm Heart Sounds: no gallop, no murmur and no cardiac rub Vessels: no JVD and + abnormal peripheral pulses Extremities: no calf tenderness Gastrointestinal (Abdomen): Inspection/Auscultation: abdomen normal to inspection and normal bowel sounds; abdomen not distended Percussion/Palpation: + abdomen tender (epigastric); no guarding and + abdomen not soft Skin: no rashes, warm and dry Psychiatric: Orientation: alert and oriented x 3 Results & Data Results & Data ([facility]) Vital Signs (Past 12 Hours) Vital Signs Temp Pulse Resp BP Pulse Ox 07/18/20 22:33 77 20 116/60 98 07/18/20 22:20 37.1 C 07/18/20 22:15 75 19 108/62 98 07/18/20 22:00 80 19 117/50 L 99 07/18/20 21:51 82 20 107/72 99 07/18/20 21:46 99 07/18/20 21:45 86 24 123/64 100 07/18/20 21:43 37.3 C 90 24 128/64 99 07/18/20 21:20 67 18 105/56 L 98 07/18/20 21:15 65 20 101/58 L 97 07/18/20 21:14 66 20 99/56 L 98 07/18/20 21:06 63 21 102/53 L 97 07/18/20 21:02 72 18 68/40 L 96 Laboratory Results 07/19/20 07/19/20 07/18/20 Range/Units 00:57 00:57 21:17 WBC (4.8-10.8) K/uL RBC (4.7-6.1) M/uL Hgb (14.0-18.0) g/dL POC Hgb 15.3 (14.0-18.0) g/dl Hct (42-52) % POC Hct 45 (42-52) % MCV (80-100) fL MCH (25-34) pg MCHC (32-36) g/dL RDW Std Deviation (36.4-46.3) fL RDW Coeff of Agnes (11.5-14.5) % Plt Count (130-400) K/uL MPV (7.4-10.4) fL Immature Gran % (Auto) % Neut % (Auto) % Lymph % (Auto) % [place] % (Auto) % Eos % (Auto) % Baso % (Auto) % Neut # (Auto) (1.4-6.5) K/uL Lymph # (Auto) (1.2-3.4) K/uL [place] # (Auto) (0.11-0.59) K/uL Eos # (Auto) (0-0.5) K/uL Baso # (Auto) (0-0.2) K/uL Immature Gran # (Auto) (0.00-0.02) K/uL PT (9.0-12.0) Seconds INR (0.9-1.1) POC Sodium 139 (135-144) mmol/L Sodium (136-145) mmol/L POC Potassium 4.0 (3.3-5.0) mmol/L Potassium (3.5-5.1) mmol/L POC Chloride 99 L (101-112) mmol/L Chloride (98-107) mmol/L Carbon Dioxide (21-32) mmol/L POC Total CO2 28 (24-31) mmol/L Anion Gap (3-11) POC Anion Gap 17.0 (16-25) mmol/L POC BUN 18 (7-18) mg/dl BUN (7-18) mg/dl Creatinine (0.6-1.4) mg/dl POC Creatinine 1.4 H (0.6-1.3) mg/dl Est Cr Clr Drug Dosing ml/min Est GFR ( Amer) Est GFR (Non-Af Amer) BUN/Creatinine Ratio (10-20) Glucose (70-99) mg/dl POC Glucose (other) 156 H (70-99) mg/dl Calcium (8.5-10.1) mg/dl POC Ioniz Calcium Asha 1.15 (1.12-1.32) mmol/l Phosphorus (2.5-4.9) mg/dl Magnesium (1.8-2.4) mg/dl Total Bilirubin (0.2-1) mg/dl Direct Bilirubin (0-0.2) mg/dl AST (15-37) U/L ALT (12-78) U/L Alkaline Phosphatase (45-117) U/L Total Creatine Kinase (39-308) U/L Troponin I (0-0.045) ng/ml Total Protein (6.4-8.2) gm/dl Albumin (3.4-5.0) gm/dl Globulin (2.5-4.0) gm/dl Albumin/Globulin Ratio (0.9-2) Lipase (73-393) U/L COVID-19 Eval Order Covid19 IDNow [facility] SARS-CoV-2, RNA, NAAT Pending Blood Type Antibody Screen 07/18/20 07/18/20 07/18/20 Range/Units 21:13 21:13 21:13 WBC 17.15 H (4.8-10.8) K/uL RBC 4.93 (4.7-6.1) M/uL Hgb 16.0 (14.0-18.0) g/dL POC Hgb (14.0-18.0) g/dl Hct 44.0 (42-52) % POC Hct (42-52) % MCV 89.2 (80-100) fL MCH 32.5 (25-34) pg MCHC 36.4 H (32-36) g/dL RDW Std Deviation 39.6 (36.4-46.3) fL RDW Coeff of Agnes 12.3 (11.5-14.5) % Plt Count 273 (130-400) K/uL MPV 9.3 (7.4-10.4) fL Immature Gran % (Auto) 0.3 % Neut % (Auto) 80.5 % Lymph % (Auto) 14.2 % [place] % (Auto) 3.3 % Eos % (Auto) 1.5 % Baso % (Auto) 0.2 % Neut # (Auto) 13.81 H (1.4-6.5) K/uL Lymph # (Auto) 2.43 (1.2-3.4) K/uL [place] # (Auto) 0.57 (0.11-0.59) K/uL Eos # (Auto) 0.26 (0-0.5) K/uL Baso # (Auto) 0.03 (0-0.2) K/uL Immature Gran # (Auto) 0.05 H (0.00-0.02) K/uL PT 10.3 (9.0-12.0) Seconds INR 1.0 (0.9-1.1) POC Sodium (135-144) mmol/L Sodium 139 (136-145) mmol/L POC Potassium (3.3-5.0) mmol/L Potassium 3.9 (3.5-5.1) mmol/L POC Chloride (101-112) mmol/L Chloride 104 (98-107) mmol/L Carbon Dioxide 28 (21-32) mmol/L POC Total CO2 (24-31) mmol/L Anion Gap 7.0 (3-11) POC Anion Gap (16-25) mmol/L POC BUN (7-18) mg/dl BUN 17 (7-18) mg/dl Creatinine 1.42 H (0.6-1.4) mg/dl POC Creatinine (0.6-1.3) mg/dl Est Cr Clr Drug Dosing 84.0 ml/min Est GFR ( Amer) 67.2 Est GFR (Non-Af Amer) 58.0 BUN/Creatinine Ratio 12.3 (10-20) Glucose 153 H (70-99) mg/dl POC Glucose (other) (70-99) mg/dl Calcium 8.7 (8.5-10.1) mg/dl POC Ioniz Calcium Asha (1.12-1.32) mmol/l Phosphorus 2.1 L (2.5-4.9) mg/dl Magnesium 1.9 (1.8-2.4) mg/dl Total Bilirubin 0.4 (0.2-1) mg/dl Direct Bilirubin < 0.1 (0-0.2) mg/dl AST 19 (15-37) U/L ALT 38 (12-78) U/L Alkaline Phosphatase 57 (45-117) U/L Total Creatine Kinase 88 (39-308) U/L Troponin I < 0.015 (0-0.045) ng/ml Total Protein 6.8 (6.4-8.2) gm/dl Albumin 3.7 (3.4-5.0) gm/dl Globulin 3.1 (2.5-4.0) gm/dl Albumin/Globulin Ratio 1.2 (0.9-2) Lipase 185 (73-393) U/L COVID-19 Eval Order SARS-CoV-2, RNA, NAAT Blood Type Antibody Screen 07/18/20 Range/Units 21:13 WBC (4.8-10.8) K/uL RBC (4.7-6.1) M/uL Hgb (14.0-18.0) g/dL POC Hgb (14.0-18.0) g/dl Hct (42-52) % POC Hct (42-52) % MCV (80-100) fL MCH (25-34) pg MCHC (32-36) g/dL RDW Std Deviation (36.4-46.3) fL RDW Coeff of Agnes (11.5-14.5) % Plt Count (130-400) K/uL MPV (7.4-10.4) fL Immature Gran % (Auto) % Neut % (Auto) % Lymph % (Auto) % [place] % (Auto) % Eos % (Auto) % Baso % (Auto) % Neut # (Auto) (1.4-6.5) K/uL Lymph # (Auto) (1.2-3.4) K/uL [place] # (Auto) (0.11-0.59) K/uL Eos # (Auto) (0-0.5) K/uL Baso # (Auto) (0-0.2) K/uL Immature Gran # (Auto) (0.00-0.02) K/uL PT (9.0-12.0) Seconds INR (0.9-1.1) POC Sodium (135-144) mmol/L Sodium (136-145) mmol/L POC Potassium (3.3-5.0) mmol/L Potassium (3.5-5.1) mmol/L POC Chloride (101-112) mmol/L Chloride (98-107) mmol/L Carbon Dioxide (21-32) mmol/L POC Total CO2 (24-31) mmol/L Anion Gap (3-11) POC Anion Gap (16-25) mmol/L POC BUN (7-18) mg/dl BUN (7-18) mg/dl Creatinine (0.6-1.4) mg/dl POC Creatinine (0.6-1.3) mg/dl Est Cr Clr Drug Dosing ml/min Est GFR ( Amer) Est GFR (Non-Af Amer) BUN/Creatinine Ratio (10-20) Glucose (70-99) mg/dl POC Glucose (other) (70-99) mg/dl Calcium (8.5-10.1) mg/dl POC Ioniz Calcium Asha (1.12-1.32) mmol/l Phosphorus (2.5-4.9) mg/dl Magnesium (1.8-2.4) mg/dl Total Bilirubin (0.2-1) mg/dl Direct Bilirubin (0-0.2) mg/dl AST (15-37) U/L ALT (12-78) U/L Alkaline Phosphatase (45-117) U/L Total Creatine Kinase (39-308) U/L Troponin I (0-0.045) ng/ml Total Protein (6.4-8.2) gm/dl Albumin (3.4-5.0) gm/dl Globulin (2.5-4.0) gm/dl Albumin/Globulin Ratio (0.9-2) Lipase (73-393) U/L COVID-19 Eval Order SARS-CoV-2, RNA, NAAT Blood Type O Positive Antibody Screen NEGATIVE Supervising Physician Co-Signing Physician Notes Attending addendum: I have physically seen this patient, have supervised the medical residents activities, and agree with the H&P unless as otherwise noted. Assessment and Plan: Hematemesis/history of esophageal perforation in 2015/present aspirin use- CTA chest: Small hiatal hernia with circumferential wall thickening of the mid distal esophagus. NPO H&H every 6 hours Protonix bolus then drip IV fluids Consult gastroenterology Type and screen Acute kidney injury- Creatinine 1.42 Repeat PRP in a.m. Remaining orders and notations as noted Resident Activity Tracking Resident Involvement: Resident Care Provided Care Provided: Adult Hospital Medicine
[2020-07-19] MEDS ORDERED: ONDANSETRON INJ 2 MG/ML 2 ML VIAL IV PRN (01:40)
[2020-07-19] MEDS: SODIUM CHLORIDE 0.9% 1000ML 1,000 ML IV SCH ×3 (03:38→18:35)
[2020-07-19 06:43] LABS: Basophils # (auto) 0.01 K/uL (0-0.2); Hematocrit (blood only) 39.1 % (42-52); Hemoglobin 13.6 g/dL (14.0-18.0); Immature Granulocytes # (auto) 0.08 K/uL (0.00-0.02); Immature Granulocytes % (auto) 0.4 %; Lymphocytes # (auto) 1.22 K/uL (1.2-3.4); Mean Corpuscular Hemoglobin 31.4 pg (25-34); Mean Corpuscular Hgb Conc 34.8 g/dL (32-36); Mean Corpuscular Volume 90.3 fL (80-100); Mean Platelet Volume 9.1 fL (7.4-10.4); Monocytes # (auto) 1.25 K/uL (0.11-0.59); Monocytes % (auto) 6.1 %; Neutrophils # (auto) 17.79 K/uL (1.4-6.5); Neutrophils % (auto) 87.5 %; Platelet Count 207 K/uL (130-400); RDW Coefficient of Variation 12.4 % (11.5-14.5); RDW Standard Deviation 40.7 fL (36.4-46.3); Red Blood Count 4.33 M/uL (4.7-6.1); White Blood Count 20.35 K/uL (4.8-10.8)
[2020-07-19 07:11] LABS: BUN Creatinine Ratio 25.2 (10-20); Calcium 8.3 mg/dl (8.5-10.1); Est GFR (African American) 90.5; Est GFR (Non-African American) 78.1; Magnesium 1.8 mg/dl (1.8-2.4); Potassium 4.6 mmol/L (3.5-5.1)
[2020-07-19] MEDS: PANTOprazole 40 MG in SYRINGE 0 ML IV SCH ×2 (07:32→20:10)
--- NOTE | 2020-07-19 08:04 | XRay Report ---
XR chest 1V portable HISTORY: Atypical Chest Pain COMPARISON: 08/04/2016. FINDINGS: There are low lung volumes. Bibasilar linear densities favor subsegmental atelectasis. The cardiac silhouette is borderline enlarged. No pleural effusions. No pneumothorax. Calcified granuloma within the left upper lobe. IMPRESSION: Low lung volumes and bibasilar densities favor subsegmental atelectasis. ACT 112: Negative or not required by law. Electronically signed by: Jacky Puentes M.D. 07/19/2020 8:03 AM
--- NOTE | 2020-07-19 08:27 | CT Scan Report ---
CT ANGIOGRAPHY OF THE CHEST DISSECTION PROTOCOL CLINICAL HISTORY: ap/cp, n/v, hematemesis, syncope, h/o esophageal perforation. COMPARISON STUDY: Chest CT August 04, 2016. Chest radiograph July 18, 2020. TECHNIQUE: Before and following the IV administration of 120 mL of Optiray-320, helical axial images of the chest were obtained. Maximal intensity projections and sagittal and coronal reformats were vi ewed on an independent 3D workstation. IV contrast was administered without complication. Automated exposure control was utilized for the study. A dose lowering technique was utilized adhering to the principles of ALARA. FINDINGS: There is no thoracic aortic dissection. Caliber of the thoracic aorta is likely within nor mal limits although the aortic root is suboptimally assessed on this exam. There is no pericardial ef fusion. No pneumothorax or pleural effusion is noted. Note is made of moderate wall thickening of the distal esophagus with adjacent stranding and fluid. No pneumomediastinum is present. There is no med iastinal fluid collection. Calcified mediastinal and bilateral hilar lymph nodes are noted. There are calcified granulomas within the lungs. There is no consolidation to suggest pneumonia. Subpleural op acities within the left lower lobe favor atelectasis or scarring. No acute fracture or suspicious les ion within the bony thorax is noted. Hepatic steatosis is noted. The abdomen and pelvis will be repor marcelina separately. This exam is compromised by motion artifact. No central pulmonary embolus is identifi ed. IMPRESSION: 1. No thoracic aortic dissection. 2. Wall moderate wall thickening of the distal esophagus with adjacent stranding and fluid. This sugg ests esophagitis. No pneumomediastinum. However, underlying esophageal injury with partial-thickness tear cannot be excluded by CT. GI consultation is recommended. This finding will be called/faxed to t he ordering provider at time of dictation. ACT 112: Negative or not required by law. Electronically signed by: Linus Mix M.D. 07/19/2020 8:26 AM
--- NOTE | 2020-07-19 09:15 | CT Scan Report ---
CT angio abdomen pelvis w con HISTORY: Generalized abdominal pain, nausea, vomiting, hematemesis, syncope, h/o hopEs perforation TECHNIQUE: Multiaxial CT images of the abdomen and pelvis were performed following the intravenous ad ministration of 120 cc of Optiray 320 to evaluate the major vascular structures. Maximal intensity pr ojection images were also obtained. COMPARISON STUDY: Same day chest CTA 07/18/2020. FINDINGS: Please refer to the same day chest CTA for further evaluation of the lung bases. There is t hickening of the distal esophagus which is partially visualized on this study with adjacent stranding and trace fluid. This may represent an esophagitis. Underlying soft tissue injury with partial thick ness tear cannot be excluded by CT. However, there is no visualized pneumomediastinum to suggest a fu ll-thickness tear. Hepatic steatosis. The adrenal glands and pancreas unremarkable. No hydronephrosis . There is a 1.6 cm intermediate density focus within the interpolar region of the left kidney on flaquito ge 233. This could be due to an area of scarring or an indeterminate lesion. No retroperitoneal lymph adenopathy. Small gallstones are noted. No gallbladder wall thickening. The bladder is not well-diste nded but appears unremarkable. No bowel wall thickening or obstruction. Normal appendix. No pelvic ly mphadenopathy. The abdominal aorta is normal and course and caliber. The celiac artery, superior mesenteric artery, renal arteries, inferior mesenteric artery, and iliac arteries are widely patent. No dissection or an eurysm identified. IMPRESSION: 1. No evidence for abdominal aortic aneurysm or dissection. 2. No acute abnormality within the abdomen or pelvis. 3. Cholelithiasis. 4. A 1.6 cm intermediate density focus within the left kidney. This could be due to an area of scarri ng or an indeterminate lesion. Follow-up renal ultrasound recommended for further evaluation. 5. Please refer to the same day chest CTA for further evaluation of the distal esophageal abnormality . ACT 112: Positive. There are findings on this exam that require communication between the performing entity and the patient following Patient Test Result Information Act ([place] Act 112) guidelines. Electronically signed by: Jacky Puentes M.D. 07/19/2020 9:14 AM
[2020-07-19] MEDS ORDERED: PIPERACILL/TAZOBAC CONSULT ACTIVE PRN (13:05)
--- NOTE | 2020-07-19 13:12 | History & Physical Bridge Note ---
Date of Service July 19, 2020 History & Physical Bridge Note I have examined the patient, reviewed the History & Physical and in the interval since the performance of the History & Physical I have noted the following changes of clinical significance: discussed CT results with Dr. Mix over the phone this morning, findings suggesting esophagitis but also could have a partial esophageal tear there is no pneumomediastinum to suggest a perforation the patient says he vomited a lot last night, started at 630pm, then had small amount of hematemesis, but has not had this since admission he has some slight chest/epigastric pain but it is getting better since he has been here last BM was a few days ago I discussed with Dr. Garay this morning will keep NPO, add Zosyn IV, continue Protonix IV given possible esophageal tear, EGD contra-indicated it is noted, that on 09/03/2014 he required left thoracotomy for surgical repair of esophageal perforation I instructed the patient to let the RN know immediately if he has chest pain, dyspnea and we will check a chest x-ray to look for pneumomediastinum
[2020-07-19] MEDS ORDERED: PIPERACILLIN/TAZOBACTAM 3.375 GM in DEXTROSE 5% 100 ML IV ONE (13:30)
[2020-07-19] MEDS ORDERED: cefTRIAXone SODIUM 2,000 MG in DEXTROSE 5% 50 ML IV SCH (14:00)
[2020-07-19] MEDS: PIPERACILLIN/TAZOBACTAM 3.375 GM in DEXTROSE 5% 100 ML IV SCH (19:05)
--- NOTE | 2020-07-19 20:34 | Consultation Report ---
DATE OF CONSULTATION: 07/19/2020 GASTROINTESTINAL CONSULTATION NOTE REASON FOR EVALUATION: Hematemesis and possible esophageal tear. HISTORY OF PRESENT ILLNESS: The patient is a 49-year-old who was eating yesterday and became nauseated and vomited some blood after eating the evening meal. The patient does have a history in 2014 of an esophageal perforation that required surgical repair. The exact etiology for that tear is not known at this time and the patient has intellectual disability and was not able to tell me. Currently, the patient has some mild chest pain and epigastric pain. He had a CT scan that showed some thickening in the distal esophagus, which was concerning for a possible partial tear. There may be some scar tissue in that area from his previous perforation as well. He has been started on bowel rest, IV Protonix and Zofran. PAST MEDICAL HISTORY: Remarkable for he has had an umbilical hernia repair and a right inguinal hernia repair. He has a left thoracotomy for repair of the esophageal perforation on 09/03/2014. He also has intellectual compromise. SOCIAL HISTORY: He does not smoke. Drinks an occasional beer. He works at [employer]. PHYSICAL EXAMINATION: GENERAL: The patient appears in no acute distress. VITAL SIGNS: Normal. He is afebrile. ABDOMEN: Soft and nontender. LABORATORY DATA: Shows an elevated white count of 17,000, hemoglobin is 16, platelets are 273. IMPRESSION AND PLAN: The patient has a history of esophageal perforation with hematemesis and some thickening in the distal esophagus, worrisome for a partial tear. At this point, I would continue the current conservative measures and avoid endoscopy at this point in time, but I would recommend a Gastrografin swallow to assess the integrity of the esophagus. We will schedule this for tomorrow.
--- NOTE | 2020-07-19 21:48 | Electrocardiogram Report ---
Test Reason : Blood Pressure : / mmHG Vent. Rate : 069 BPM Atrial Rate : 069 BPM P-R Int : 164 ms QRS Dur : 096 ms QT Int : 394 ms P-R-T Axes : 048 032 085 degrees QTc Int : 422 ms Normal sinus rhythm Nonspecific T wave abnormality Abnormal ECG When compared with ECG of 04-AUG-2016 09:58, Inverted T waves have replaced nonspecific T wave abnormality in Lateral leads Confirmed by Dominguez Tesfaye ([id number]) on 07/19/2020 9:47:26 PM Referred By: REFERRED SELF Confirmed By:Dominguez Tesfaye
--- NOTE | 2020-07-19 21:48 | Electrocardiogram Report ---
Test Reason : Blood Pressure : / mmHG Vent. Rate : 076 BPM Atrial Rate : 076 BPM P-R Int : 158 ms QRS Dur : 102 ms QT Int : 366 ms P-R-T Axes : 056 030 072 degrees QTc Int : 411 ms Normal sinus rhythm Nonspecific T wave abnormality Abnormal ECG When compared with ECG of 18-JUL-2020 21:06, No significant change was found Confirmed by Dominguez Tesfaye ([id number]) on 07/19/2020 9:48:04 PM Referred By: REFERRED SELF Confirmed By:Dominguez Tesfaye
[2020-07-20] MEDS: SODIUM CHLORIDE 0.9% 1000ML 1,000 ML IV SCH ×3 (03:18→19:04)
[2020-07-20] MEDS: PIPERACILLIN/TAZOBACTAM 3.375 GM in DEXTROSE 5% 100 ML IV SCH ×3 (03:49→19:31)
[2020-07-20 06:21] LABS: Basophils # (auto) 0.02 K/uL (0-0.2); Basophils % (auto) 0.2 %; Eosinophils # (auto) 0.11 K/uL (0-0.5); Eosinophils % (auto) 0.8 %; Hemoglobin 12.2 g/dL (14.0-18.0); Immature Granulocytes # (auto) 0.03 K/uL (0.00-0.02); Immature Granulocytes % (auto) 0.2 %; Lymphocytes # (auto) 1.88 K/uL (1.2-3.4); Lymphocytes % (auto) 14.4 %; Mean Corpuscular Hemoglobin 31.4 pg (25-34); Mean Corpuscular Hgb Conc 34.9 g/dL (32-36); Mean Platelet Volume 8.8 fL (7.4-10.4); Monocytes # (auto) 0.67 K/uL (0.11-0.59); Monocytes % (auto) 5.1 %; Neutrophils # (auto) 10.39 K/uL (1.4-6.5); Neutrophils % (auto) 79.3 %; Platelet Count 190 K/uL (130-400); RDW Coefficient of Variation 12.6 % (11.5-14.5); RDW Standard Deviation 41.1 fL (36.4-46.3); Red Blood Count 3.89 M/uL (4.7-6.1)
[2020-07-20 07:16] LABS: BUN Creatinine Ratio 21.3 (10-20); Calcium 8.3 mg/dl (8.5-10.1); Creatinine Clr Calc Pharmacy 125.3 ml/min; Est GFR (African American) 117.7; Est GFR (Non-African American) 101.6; Magnesium 2.1 mg/dl (1.8-2.4); Phosphorus 1.8 mg/dl (2.5-4.9); Potassium 3.9 mmol/L (3.5-5.1)
[2020-07-20] MEDS ORDERED: POTASSIUM PHOS 3 MMOL/1 ML INFUSION IV STA (08:28)
[2020-07-20] MEDS ORDERED: POTASSIUM PHOSPHATE 24 MMOL in SODIUM CHLORIDE 0.9% 500 ML IV ONE (09:00)
[2020-07-20] MEDS: PANTOprazole 40 MG in SYRINGE 0 ML IV SCH ×2 (09:02→20:51)
--- NOTE | 2020-07-20 11:11 | Hospitalist Progress Note ---
Date of Service July 20, 2020 Assessment & Plan (1) Esophageal tear: CT chest with thickening of distal esophagus, possible partial thickness tear patient was vomiting a lot prior to admission and had an episode of hematemesis continue NPO, Protonix IV, no plans for EGD continue Zosyn IV for broad spectrum antibiotic coverage gastrograffin swallow study today to assess integrity of the lower esophagus, scheduled for today, follow up results no pneumomediastinum on CT chest he has a history of esophageal perforation in 2016 that required thoracotomy with surgical correction (2) Esophagitis: Protonix 40mg IV BID NPO for now WBC down to 13k from 20k, continue Zosyn (3) Hematemesis of unknown etiology: likely from excessive vomiting, esophagitis no further episodes, Hb is stable (4) Acute kidney injury: Cr up at 1.4 on admission, down to 0.88 today continue IV fluids since he is NPO (5) Acute hypotension: resolved with IV fluids Admission and Anticipated Discharge Date Admission Date: July 19, 2020 Subjective patient feels fine, no chest pain, no dyspnea, no fever, no vomiting, no hematemesis reviewed labs, WBC down to 13k from 20k, Hb stable, Cr down to 0.88 d/w Dr. Ortega, plan for barium swallow to test integrity of esophagus patient has no complaints, just laying in bed, waiting til he can have something to drink Review of Systems Review of Systems: All systems reviewed & are unremarkable except as noted in Subjective Physical Exam Constitutional: WD/WN, vitals as above Neck: trachea midline, no thyromegaly Respiratory: normal respiratory effort, lungs clear to auscultation Cardiovascular: RRR, no murmur, no edema Gastrointestinal (Abdomen): normal bowel sounds, soft, nontender, no hepatosplenomegaly Musculoskeletal: no cyanosis or clubbing, extremities motor strength 5/5 Skin: no rashes, warm and dry Neurologic: patellar DTR's 2+ bilat, sensation intact and PERRL, EOMI, accommodation nl, no face palsy, no dysarthria Psychiatric: A+Ox3, euthymic affect Lymphatic: no cervical or axillary lymphadenopathy Results & Data Results & Data ([facility]) Vital Signs (Past 12 Hours) Vital Signs Temp Pulse Pulse Resp BP Pulse Ox 07/20/20 07:34 37.2 C 82 16 119/74 95 07/20/20 06:20 87 07/20/20 04:06 37.3 C 75 20 114/70 93 07/20/20 00:00 85 07/19/20 23:38 37.3 C 82 20 125/77 93 Laboratory Results Laboratory Results - last 24 hr 07/20/20 07/20/20 06:04 06:04 WBC 13.10 H RBC 3.89 L Hgb 12.2 L Hct 35.0 L MCV 90.0 MCH 31.4 MCHC 34.9 RDW Std Deviation 41.1 RDW Coeff of Agnes 12.6 Plt Count 190 MPV 8.8 Immature Gran % (Auto) 0.2 Neut % (Auto) 79.3 Lymph % (Auto) 14.4 [place] % (Auto) 5.1 Eos % (Auto) 0.8 Baso % (Auto) 0.2 Neut # (Auto) 10.39 H Lymph # (Auto) 1.88 [place] # (Auto) 0.67 H Eos # (Auto) 0.11 Baso # (Auto) 0.02 Immature Gran # (Auto) 0.03 H Sodium 139 Potassium 3.9 D Chloride 110 H Carbon Dioxide 25 Anion Gap 4.0 BUN 19 H Creatinine 0.88 Est Cr Clr Drug Dosing 125.3 Est GFR ( Amer) 117.7 Est GFR (Non-Af Amer) 101.6 BUN/Creatinine Ratio 21.3 H Glucose 94 Calcium 8.3 L Phosphorus 1.8 L Magnesium 2.1 Medications Administered Current Inpatient Medications Pantoprazole Sodium 40 mg/ (Syringe) 10 mls @ 5 mls/min IV BID LEYLA Stop: 08/18/20 08:59 Last Admin: 07/20/20 09:02 Dose: 5 mls/min Documented by: Sodium Chloride (Nss 1000ml) 1,000 mls @ 125 mls/hr IV .Q8H LEYLA Stop: 08/18/20 02:59 Last Admin: 07/20/20 11:00 Dose: 125 mls/hr Documented by: Piperacillin Sod/Tazobactam (Sod 3.375 gm/ Dextrose) 115 mls @ 28.75 mls/hr IV Q8H LEYLA Stop: 07/29/20 19:59 Last Infusion: 07/20/20 07:33 Dose: Infused Documented by: Potassium Phosphate 24 mmol/ (Sodium Chloride) 508 mls @ 88 mls/hr IV ONE ONE Stop: 07/20/20 14:46 Last Admin: 07/20/20 09:02 Dose: 88 mls/hr Documented by: Miscellaneous Information (Piperacill/Tazobac Consult Active) 1 ea N/A UD PRN PRN Reason: Consult Stop: 08/18/20 13:04 Ondansetron HCl (Ondansetron Inj 2 Mg/Ml 2 Ml Vial) 4 mg IV Q4H PRN PRN Reason: Nausea or vomiting Stop: 08/18/20 01:39 PG Care Time/CCT Total # of Minutes Spent Total Time Spent with Patient: Total time spent is greater than 50% in coordination of care (as documented) at patient's floor/unit and/or counseling patient: Coding Level of Care Code 96474 Subseq Hosp Care Lvl 3 Diagnoses Esophageal tear S11.21XA Esophagitis K20.90 Hematemesis of unknown etiology K92.0 Acute kidney injury N17.9 Acute hypotension I95.9
--- NOTE | 2020-07-20 11:22 | Gastroenterology Progress Note ---
Date of Service July 20, 2020 Assessment & Plan (1) Esophageal tear: No evidence of true perforation clinically. May have a tear. Await gastrograffin swallow study. Continue PPI IV bid for now. Hemetemesis--none at present. Could be from tear. Esophageal thickening on CT--tear vs esophagitis. Recommend outpt EGD. Admission and Anticipated Discharge Date Admission Date: July 20, 2020 Subjective CC f/u n/v, hematemesis HPI Pt states chest pain improved. No abd pain. No N/V. WBC improved to 13 vs 20 yesterday. Gastrograffin swallow ordered. Physical Exam Gastrointestinal (Abdomen): normal bowel sounds, soft, nontender, no hepatosplenomegaly Results & Data ([facility]) Vital Signs (Past 12 Hours) Vital Signs Temp Pulse Pulse Resp BP Pulse Ox 07/20/20 11:18 37 C 85 16 119/76 95 07/20/20 07:34 37.2 C 82 16 119/74 95 07/20/20 06:20 87 07/20/20 04:06 37.3 C 75 20 114/70 93 07/20/20 00:00 85 07/19/20 23:38 37.3 C 82 20 125/77 93
--- NOTE | 2020-07-20 13:37 | Fluoroscopy Report ---
FL barium swallow CLINICAL HISTORY: Gastrografin swallow for r/o esophageal tear. Abnormal CT. COMPARISON STUDY: Chest CTA 07/18/2020. FINDINGS: Total fluoroscopy time was 1.6 minutes. 11 fluoroscopic spot images submitted. A cine loop is also submitted. The patient swallowed 200 cc of water-soluble contrast without difficulty. The pro ximal to mid esophagus is normal in course and caliber. No hiatus hernia. There is abnormal linear fi lling defect within the distal esophagus that extends to the gastroesophageal junction. This likely r epresents an intramural tear/dissection. This corresponds to the CT abnormality. There is moderate na rrowing at the distal esophagus/gastroesophageal junction. No extravasation of contrast to suggest a full-thickness esophageal tear. IMPRESSION: Abnormal linear filling defect within the distal esophagus that extends to the gastroeso phageal junction with associated moderate narrowing. This is consistent with an esophageal intramural tear/dissection. No extravasation of contrast to suggest a full-thickness esophageal tear. This find ing was called/faxed to the referring physician following dictation. ACT 112: Negative or not required by law. Electronically signed by: Jacky Puentes M.D. 07/20/2020 1:35 PM
[2020-07-21] MEDS: SODIUM CHLORIDE 0.9% 1000ML 1,000 ML IV SCH ×4 (03:45→21:26)
[2020-07-21] MEDS: PIPERACILLIN/TAZOBACTAM 3.375 GM in DEXTROSE 5% 100 ML IV SCH ×3 (04:29→21:24)
[2020-07-21] MEDS: PANTOprazole 40 MG in SYRINGE 0 ML IV SCH ×2 (08:31→21:24)
[2020-07-21 09:10] LABS: Basophils # (auto) 0.03 K/uL (0-0.2); Basophils % (auto) 0.4 %; Eosinophils # (auto) 0.32 K/uL (0-0.5); Hematocrit (blood only) 33.6 % (42-52); Hemoglobin 12.2 g/dL (14.0-18.0); Immature Granulocytes # (auto) 0.04 K/uL (0.00-0.02); Immature Granulocytes % (auto) 0.5 %; Lymphocytes # (auto) 1.44 K/uL (1.2-3.4); Mean Corpuscular Hemoglobin 32.2 pg (25-34); Mean Corpuscular Hgb Conc 36.3 g/dL (32-36); Mean Corpuscular Volume 88.7 fL (80-100); Mean Platelet Volume 9.2 fL (7.4-10.4); Monocytes # (auto) 0.52 K/uL (0.11-0.59); Monocytes % (auto) 6.5 %; Neutrophils # (auto) 5.67 K/uL (1.4-6.5); Neutrophils % (auto) 70.6 %; Platelet Count 208 K/uL (130-400); RDW Coefficient of Variation 12.3 % (11.5-14.5); RDW Standard Deviation 39.6 fL (36.4-46.3); Red Blood Count 3.79 M/uL (4.7-6.1); White Blood Count 8.02 K/uL (4.8-10.8)
[2020-07-21 09:36] LABS: Albumin Globulin Ratio 0.9 (0.9-2); Albumin Level 2.9 gm/dl (3.4-5.0); BUN Creatinine Ratio 9.6 (10-20); Bilirubin,Total 1.1 mg/dl (0.2-1); Calcium 9.1 mg/dl (8.5-10.1); Creatinine Clr Calc Pharmacy 107.5 ml/min; Est GFR (African American) 109.3; Est GFR (Non-African American) 94.3; Globulin 3.2 gm/dl (2.5-4.0); Potassium 3.4 mmol/L (3.5-5.1); Total Protein 6.1 gm/dl (6.4-8.2)
--- NOTE | 2020-07-21 12:11 | Hospitalist Progress Note ---
Date of Service July 21, 2020 Assessment & Plan (1) Esophageal tear: CT chest with thickening of distal esophagus, possible partial thickness tear patient was vomiting a lot prior to admission and had an episode of hematemesis continue Protonix IV, no plans for EGD continue Zosyn IV for broad spectrum antibiotic coverage, give 7 days of antibiotics gastrograffin swallow study 07/20 to assess integrity of the lower esophagus no evidence of full thickness tear, but there is some evidence of partial tear with dissection allow clear liquids today, has been NPO for 72 hours no pneumomediastinum on CT chest he has a history of esophageal perforation in 2016 that required thoracotomy wi th surgical correction (2) Esophagitis: Protonix 40mg IV BID clears today WBC down to 8k from 20k, continue Zosyn (3) Hematemesis of unknown etiology: likely from excessive vomiting, esophagitis no further episodes, Hb is stable at 12 (4) Acute kidney injury: Cr up at 1.4 on admission, down to 0.95 today stop IV fluids, can have clears (5) Acute hypotension: resolved with IV fluids Admission and Anticipated Discharge Date Admission Date: July 20, 2020 Subjective patient doing well, no pain, no dyspnea, no vomiting or retching started on clear liquids after discussing with Dr. Ortega reviewed labs, Hb 12, WBC down to 8k, K a little low at 3.4 Review of Systems Review of Systems: All systems reviewed & are unremarkable except as noted in Subjective Constitutional: no fever, no chills, no sweats, no fatigue and no weakness Respiratory: no cough and no dyspnea Cardiovascular: no chest pain and no edema Gastrointestinal: no abdominal pain, no nausea, no vomiting, no constipation and no diarrhea/loose stools Physical Exam Constitutional: WD/WN, vitals as above Neck: trachea midline, no thyromegaly Respiratory: normal respiratory effort, lungs clear to auscultation Cardiovascular: RRR, no murmur, no edema Gastrointestinal (Abdomen): normal bowel sounds, soft, nontender, no hepatosplenomegaly Musculoskeletal: no cyanosis or clubbing, extremities motor strength 5/5 Skin: no rashes, warm and dry Neurologic: patellar DTR's 2+ bilat, sensation intact and PERRL, EOMI, accomm odation nl, no face palsy, no dysarthria Psychiatric: A+Ox3, euthymic affect Lymphatic: no cervical or axillary lymphadenopathy Results & Data Results & Data ([facility]) Vital Signs (Past 12 Hours) Vital Signs Temp Pulse Pulse Resp BP BP Pulse Ox 07/21/20 11:23 37.1 C 74 18 142/81 H 98 07/21/20 07:34 37.1 C 75 16 133/80 96 07/21/20 07:33 70 07/21/20 04:00 37.2 C 80 20 132/87 94 Laboratory Results Laboratory Results - last 24 hr 07/21/20 07/21/20 07/21/20 06:50 06:50 06:51 WBC 8.02 RBC 3.79 L Hgb 12.2 L Hct 33.6 L MCV 88.7 MCH 32.2 MCHC 36.3 H RDW Std Deviation 39.6 RDW Coeff of Agnes 12.3 Plt Count 208 MPV 9.2 Immature Gran % (Auto) 0.5 Neut % (Auto) 70.6 Lymph % (Auto) 18.0 [place] % (Auto) 6.5 Eos % (Auto) 4.0 Baso % (Auto) 0.4 Neut # (Auto) 5.67 Lymph # (Auto) 1.44 [place] # (Auto) 0.52 Eos # (Auto) 0.32 Baso # (Auto) 0.03 Immature Gran # (Auto) 0.04 H Sodium 140 Potassium 3.4 L Chloride 109 H Carbon Dioxide 25 Anion Gap 6.0 BUN 9 D Creatinine 0.95 Est Cr Clr Drug Dosing 107.5 Est GFR ( Amer) 109.3 Est GFR (Non-Af Amer) 94.3 BUN/Creatinine Ratio 9.6 L Glucose 90 Calcium 9.1 Phosphorus 2.7 Total Bilirubin 1.1 H AST 20 ALT 22 Alkaline Phosphatase 48 Total Protein 6.1 L Albumin 2.9 L Globulin 3.2 Albumin/Globulin Ratio 0.9 Medications Administered Current Inpatient Medications Pantoprazole Sodium 40 mg/ (Syringe) 10 mls @ 5 mls/min IV BID LEYLA Stop: 08/18/20 08:59 Last Admin: 07/21/20 08:31 Dose: 5 mls/min Documented by: Sodium Chloride (Nss 1000ml) 1,000 mls @ 125 mls/hr IV .Q8H LEYLA Stop: 08/18/20 02:59 Last Admin: 07/21/20 11:48 Dose: 125 mls/hr Documented by: Piperacillin Sod/Tazobactam (Sod 3.375 gm/ Dextrose) 115 mls @ 28.75 mls/hr IV Q8H [facility] Stop: 07/29/20 19:59 Last Admin: 07/21/20 11:48 Dose: 28.8 mls/hr Documented by: Miscellaneous Information (Piperacill/Tazobac Consult Active) 1 ea N/A UD PRN PRN Reason: Consult Stop: 08/18/20 13:04 Ondansetron HCl (Ondansetron Inj 2 Mg/Ml 2 Ml Vial) 4 mg IV Q4H PRN PRN Reason: Nausea or vomiting Stop: 08/18/20 01:39 PG Care Time/CCT Total # of Minutes Spent Total Time Spent with Patient: Total time spent is greater than 50% in coordination of care (as documented) at patient's floor/unit and/or counseling patient: Coding Level of Care Code 84922 Subseq Hosp Care Lvl 2 Diagnoses Esophageal tear S11.21XA Esophagitis K20.90 Hematemesis of unknown etiology K92.0 Acute kidney injury N17.9 Acute hypotension I95.9
--- NOTE | 2020-07-21 13:15 | Gastroenterology Progress Note ---
Date of Service July 21, 2020 Assessment & Plan (1) Esophageal tear: No evidence of true perforation clinically or on gastrograffing swallow. Continue PPI. Can advance to full liquids tomorrow and would keep on that for 2 weeks to avoid food sticking in esophagus while tear healing. Hemetemesis--none at present. Could be from tear. Esophageal thickening on CT--tear vs esophagitis. Recommend outpt EGD. Admission and Anticipated Discharge Date Admission Date: July 20, 2020 Subjective cc f/u esophageal tear HPI Gastrograffin swallow showed tear but no perforation. Pt tolerating clears and denies chest pain and abd pain. Physical Exam Gastrointestinal (Abdomen): normal bowel sounds, soft, nontender, no hepatosplenomegaly Results & Data ([facility]) Vital Signs (Past 12 Hours) Vital Signs Temp Pulse Pulse Resp BP BP Pulse Ox 07/21/20 11:23 37.1 C 74 18 142/81 H 98 07/21/20 07:34 37.1 C 75 16 133/80 96 07/21/20 07:33 70 07/21/20 04:00 37.2 C 80 20 132/87 94
[2020-07-22] MEDS: PIPERACILLIN/TAZOBACTAM 3.375 GM in DEXTROSE 5% 100 ML IV SCH (04:53)
[2020-07-22 06:28] LABS: Basophils # (auto) 0.03 K/uL (0-0.2); Basophils % (auto) 0.5 %; Eosinophils # (auto) 0.38 K/uL (0-0.5); Eosinophils % (auto) 6.3 %; Hemoglobin 11.8 g/dL (14.0-18.0); Immature Granulocytes # (auto) 0.04 K/uL (0.00-0.02); Immature Granulocytes % (auto) 0.7 %; Lymphocytes # (auto) 1.69 K/uL (1.2-3.4); Lymphocytes % (auto) 28.2 %; Mean Corpuscular Hemoglobin 30.8 pg (25-34); Mean Corpuscular Hgb Conc 34.7 g/dL (32-36); Mean Corpuscular Volume 88.8 fL (80-100); Monocytes # (auto) 0.43 K/uL (0.11-0.59); Monocytes % (auto) 7.2 %; Neutrophils # (auto) 3.43 K/uL (1.4-6.5); Neutrophils % (auto) 57.1 %; Platelet Count 216 K/uL (130-400); RDW Coefficient of Variation 12.3 % (11.5-14.5); RDW Standard Deviation 39.9 fL (36.4-46.3); Red Blood Count 3.83 M/uL (4.7-6.1)
[2020-07-22 07:03] LABS: BUN Creatinine Ratio 6.9 (10-20); Calcium 8.7 mg/dl (8.5-10.1); Creatinine Clr Calc Pharmacy 97.2 ml/min; Est GFR (African American) 96.8; Est GFR (Non-African American) 83.5; Potassium 3.5 mmol/L (3.5-5.1)
[2020-07-22 07:05] LABS: Albumin Globulin Ratio 0.9 (0.9-2); Bilirubin,Total 0.9 mg/dl (0.2-1); Globulin 3.4 gm/dl (2.5-4.0); Total Protein 6.4 gm/dl (6.4-8.2)
[2020-07-22] MEDS: PANTOprazole 40 MG in SYRINGE 0 ML IV SCH (09:15)
--- NOTE | 2020-07-22 09:58 | Gastroenterology Progress Note ---
Date of Service July 22, 2020 Assessment & Plan (1) Esophageal tear: No evidence of true perforation clinically or on gastrograffing swallow. Continue PPI. Keep on full liquids 2 weeks to avoid food sticking in esophagus while tear healing. After back on solid food discussed also with patient regarding chewing food well and small bites to avoid food obstructing esophagus. Hemetemesis--none at present. Could be from tear. Esophageal thickening on CT--tear vs esophagitis. Recommend outpt EGD. Admission and Anticipated Discharge Date Admission Date: July 20, 2020 Subjective cc f/u esophageal tear HPI Pt denies abd pain and chest pain. Tolerating full liquid diet. Physical Exam Gastrointestinal (Abdomen): normal bowel sounds, soft, nontender, no hepatosplenomegaly Results & Data ([facility]) Vital Signs (Past 12 Hours) Vital Signs Temp Pulse Pulse Resp BP BP Pulse Ox 07/22/20 07:00 36.7 C 69 18 134/83 95 07/22/20 04:10 36.6 C 64 18 129/79 96 07/22/20 01:00 74 07/21/20 23:00 37.1 C 74 20 146/83 H 97
--- NOTE | 2020-07-23 11:01 | Discharge Summary ---
Date of Service July 22, 2020 Admission HPI Per Admitting Provider Tanvir Velázquez is a 49y/o M with PMH significant for intellectual disability, and esophageal perforation repaired at [facility] in 2014; who presented to the ER for concerns of nausea, and vomiting of blood after eating dinner earlier this evening. Patient was eating dinner with his parents when he began to feel nauseated and then vomited several times before starting to vomit a small amount of blood before it became more bloody. Following this he felt lightheaded for a short period of time, and his parents brought him to the ER for evaluation given his history of previous esophageal perforation requiring repair. At this time patient continues to feel slight abdominal tenderness, however feels overall improved. Does feel more fatigued/tired than he was previously. Discussions had with both parents and patient given intellectual disability. Patient states that he has been feeling well over the last week, without any concerns for abdominal pain, nausea, vomiting, changes to bowel movements, bright red blood per rectum, melena. Was eating a [employer] dinner when the nausea suddenly came on, otherwise did not have any abdominal discomfort. Principal Diagnosis Esophagitis with partial esophageal tear from vomiting Discharge Exam Constitutional WD/WN, vitals as above Neck trachea midline, no thyromegaly Respiratory normal respiratory effort, lungs clear to auscultation Cardiovascular RRR, no murmur, no edema Gastrointestinal (Abdomen) normal bowel sounds, soft, nontender, no hepatosplenomegaly Musculoskeletal no cyanosis or clubbing, extremities motor strength 5/5 Skin no rashes, warm and dry Neurologic patellar DTR's 2+ bilat, sensation intact and PERRL, EOMI, accommodation nl, no face palsy, no dysarthria Psychiatric A+Ox3, euthymic affect Lymphatic no cervical or axillary lymphadenopathy Discharge Data Allergies Allergy/AdvReac Type Severity Reaction Status Date / Time No Known Allergies Allergy Unverified 07/18/20 21:39 Consultations 07/18/20 23:49 ED Decision to Admit Stat 07/19/20 01:40 Consult Gastroenterology Routine Ordered Studies 07/18/20 21:25 CT angio abdomen pelvis w con Urgent CT angio chest dissec wo/w con Urgent Hospital Course (1) Esophageal tear: CT chest with thickening of distal esophagus, possible partial thickness tear patient was vomiting a lot prior to admission and had an episode of hematemesis continue Protonix IV, no plans for EGD continue Zosyn IV for broad spectrum antibiotic coverage while admitted, no need for antibiotics on discharge gastrograffin swallow study 07/20 to assess integrity of the lower esophagus no evidence of full thickness tear, but there is some evidence of partial tear with dissection tolerating clear liquids for a day, advanced to full liquids needs to stay on full liquids for two weeks will follow up with [facility], needs EGD in a few weeks to assess esophagus he has a history of esophageal perforation in 2016 that required thoracotomy with surgical correction, fortunately not that bad this time (2) Esophagitis: Protonix 40mg IV BID WBC down to 8k from 20k, while on Zosyn (3) Hematemesis of unknown etiology: likely from excessive vomiting, esophagitis no further episodes, Hb is stable at 12 (4) Acute kidney injury: Cr up at 1.4 on admission, down to 0.95 stop IV fluids, can have clears (5) Acute hypotension: resolved with IV fluids Total Time Total Time Spent Total Time Spent (In Minutes): 32 minutes Total Time Includes: Examination of the Patient, Discharge Planning, Medication Reconciliation and Communication With Other Providers (Dr. Ortega) Discharge Plan Discharge Items Patient Disposition: Home - Self-Care Reason For Visit: HEMATEMESIS Discharge Diagnosis: Partial esophageal tear Esophagitis Hematemesis Condition on Discharge: Good Goals: full liquid diet for two weeks follow up with gastroenterology Activity: Resume your previous activity Driving/Machine Use: No limitations Weightbearing: Full weightbearing Non-emergency contact: Primary Care Provider and Rehab Manager Call non-emergency contact if: you have any medication questions and your symptoms worsen Follow-up/Referrals: Zana Zuniga MD [Primary Care Provider] - 07/28/20 11:10 am (If you have any questions or need to change this appointment, please call [phone].) Parminder Garay [Physician] - (2-3 weeks, will need EGD) Diet: Full liquid Addtl Attending Provider Instructions: Medications: - PROTONIX: 40mg twice a day for at least a month then likely decrease to once a day, defer to gastroenterology for further instructions - ZOFRAN: take as needed for any nausea, want to prevent you from vomiting Esophagitis, evidence of partial esophageal tear need to stay on FULL LIQUID DIET only, don't want food getting stuck in area of esophageal tear stay on full liquids for 2 weeks, follow up with Dr. Garay with gastroenterology, [facility] use Protonix twice a day to decrease acid production in stomach take Zofran if you feel any nausea hold your other medications (aspirin, vitamins) want to limit what you are taking by mouth Pending Studies at Discharge: No Stand-Alone Forms: My [facility], Smoking Cessation Medications and DC Order Prescriptions: New pantoprazole [Protonix] 40 mg tablet,delayed release (DR/EC) 40 mg PO BID 30 Days Qty: 60 RF: 1 ondansetron HCl [Zofran] 4 mg tablet 4 mg PO Q6H PRN (Reason: nausea and vomiting) Qty: 30 RF: 1 Discontinued multivitamin Capsule 1 cap PO DAILY RF: 0 ascorbate calcium (vitamin C) 500 mg tablet 500 mg PO DAILY RF: 0 aspirin 81 mg tablet,delayed release (DR/EC) 81 mg PO DAILY RF: 0 No Action amoxicillin-pot clavulanate [Augmentin] 875-125 mg tablet 1 tab PO BID RF: 0 Discharge Orders: Discharge Order (Routine); Ordered 07/22/20 Ordered By: Stanton Dunaway Admission Data Admit Date/Time: 07/20/20 11:01 Attending Provider: Stanton Dunaway Admit Provider: Arcadio Brown Primary Care Provider: Zana Zuniga Other Providers: Juan Guzmán ; Parminder Garay Other Interventions: Discharge Summary Assessment (RN) Last Done: 07/22/20 10:50 Coding Level of Care Code D/C Day Management >30 mins Diagnoses Esophageal tear S11.21XA Esophagitis K20.90 Hematemesis of unknown etiology K92.0 Acute kidney injury N17.9 Acute hypotension I95.9
--- NOTE | 2020-07-27 00:27 | Billing Data ---
Date of Service July 27, 2020 Coding Level of Care Code 11444 Initial Inpt Care Lvl 3
== END 2020-07-22 12:05 | disposition home or self-care (01) | DRG 155 ==
LOC: 2N 21:00 → ED 21:00 → SUATTDRO 07-19 00:36 → 2N 07-19 01:25